=== PATIENT | female | born 1945 | race Two or more races ===

== ENCOUNTER → 2017-10-08 | Outpatient (CLI) | payer OTHER | END | disposition home or self-care (01) | LOC: MAMO-SONO 11-23 08:15 → RAD 12:22 | DX: M12.89 Other specific arthropathies, not elsewhere classified, multiple sites (principal); M19.90 Unspecified osteoarthritis, unspecified site; R10.84 Generalized abdominal pain ==

== ENCOUNTER → 2019-04-03 | Outpatient (CLI) | payer OTHER | END | disposition home or self-care (01) | LOC: TOM 09:44 | DX: R10.84 Generalized abdominal pain (principal) ==